=== PATIENT | male | born 1965 | race African-American/Black ===

== ENCOUNTER 2019-05-15 13:12 | Inpatient (IN) | payer OTHER ==
[~2019-05-15] VITALS: Ht 195.6 cm; Wt 125.2 kg
[2019-05-15 14:52] LABS: Basophils # (auto) 0 uL; Basophils % (auto) 0.9 % (0.0-2.0); Eosinophils # (auto) 0.1 uL; Eosinophils % (auto) 1.5 % (0.0-7.0); Hematocrit 41.9 % (41.0-53.0); Lymphocytes # (auto) 1.4 uL; Lymphocytes % (auto) 33.7 % (10.0-50.0); Mean Corpuscular Hemoglobin 29.3 pg (28.0-32.0); Mean Corpuscular Hgb Conc. 33.4 g/dL (32.0-36.0); Monocytes # (auto) 0.4 uL; Monocytes % (auto) 10.5 % (0.0-12.0); Neutrophils # (auto) 2.2 uL; Neutrophils % (auto) 53.4 % (37.0-80.0); Nucleated Red Blood Cells % 0.3 %; Platelet Count (auto) 204 10^3/uL (140-450); Red Blood Cells 4.77 10^6/uL (4.5-5.90); Red Cell Distribution Width 15.1 % (11.8-14.3); White Blood Cell 4.1 10^3/uL (4.4-10.8)
[2019-05-15 15:06] LABS: Alanine Aminotransferase 56 U/L (16-61); Albumin 3.6 g/dL (3.4-5.0); Anion Gap 5 (5-15); Aspartate Aminotransferase 20 U/L (15-37); BUN/Creatinine Ratio 9.9; Blood Urea Nitrogen 8 mg/dL (7-18); Calcium 8.4 mg/dL (8.5-10.1); Carbon Dioxide 26 mmol/L (21-32); Chloride 108 mmol/L (98-107); GFR African American 129 mL/min; GFR Non-African American 106 mL/min; Glucose 136 mg/dL (74-106); Potassium 4.1 mmol/L (3.5-5.1); Sodium 139 mmol/L (136-145)
[2019-05-15 15:11] LABS: Alkaline Phosphatase 116 U/L (45-117); Bilirubin, Total 0.4 mg/dL (0.2-1.0); Total Protein 7.4 g/dL (6.4-8.2)
[2019-05-15] MEDS ORDERED: MORPHINE SULF INJ 2 MG/ML SYRINGE 1ML IV PRN (17:15)
[2019-05-15] MEDS ORDERED: DEXTROSE (50%) 50ML SYRG IV PRN (17:15)
[2019-05-15] MEDS ORDERED: NITROGLYCERIN 0.4 MG SL TAB SL PRN (17:15)
[2019-05-15] MEDS: HYDROcodone-ACET 10/325MG TAB PO PRN (18:19)
[2019-05-15 20:42] VITALS: BP 158/100
[2019-05-15 21:05] VITALS: BP 158/100
--- NOTE | 2019-05-15 21:05 | NUR ---
Opening Shift Note Received report from ED nurse. Assumed care of patient. Patient is awake, alert, and orientated x 4. No S/S of distress/SOB, but head pain 8/10. no chest pain at this moment. Guards are at bedside. Patient is shackled by lower extremities bilaterally, and shackled by right wrist. Bed is in lowest position with side rails up x 2. Bed braked are locked and call light is with in reach. HOB is 30 degrees. Instructed on POC and to call for assist PRN, will continue to monitor for changes Q1hr and PRN.
[2019-05-15] MEDS: METOPROLOL TARTRATE 50 MG TAB PO SCH (21:41)
[2019-05-15] MEDS: ACCU-CHEK COMFORT CURVE STRIP VI SCH (21:41)
[2019-05-15] MEDS: InsuLIN REG 1unit/0.01ml Soln (100units/ml) SC SCH (21:46)
--- NOTE | 2019-05-16 00:02 | NUR ---
NPO PT IS NPO FOR CARDIOLITE STRESS TEST.
[2019-05-16] MEDS: HYDROmorphone HCL 2 MG/ML VL IV PRN ×3 (00:53→22:09)
[2019-05-16 04:30] VITALS: BP 145/82
[2019-05-16] MEDS: ACCU-CHEK COMFORT CURVE STRIP VI SCH ×4 (06:50→22:08)
[2019-05-16] MEDS: InsuLIN REG 1unit/0.01ml Soln (100units/ml) SC SCH ×4 (06:50→22:09)
--- NOTE | 2019-05-16 07:13 | NUR ---
CLOSING NOTES ENDORSED CARE TO DAY SHIFT NURSE
--- NOTE | 2019-05-16 07:33 | NUR ---
Opening Shift Note: Assumed care of patient, awake and alert. security guards dispatcher at bedside for safety. patient placed in handcuffs. No S/S of distress/SOB or pain. Bed in lowest locked position, side rails up x 2, call light within. Patient instructed on POC and to call for assist PRN, will continue to monitor for changes Q1hr and PRN.
[2019-05-16] MEDS ORDERED: ADENOSINE 105 MG in GIVE UN-DILUTED 0 ML IV STA (08:28)
--- NOTE | 2019-05-16 08:35 | NUR ---
Patient down to stress test.
[2019-05-16 08:53] VITALS: BP 140/84
--- NOTE | 2019-05-16 10:05 | NUR ---
Patient back to room from stress test.
[2019-05-16] MEDS: ASPirin-EC 81 mg tab PO SCH (10:11)
[2019-05-16] MEDS: METOPROLOL TARTRATE 50 MG TAB PO SCH ×2 (10:12→21:52)
[2019-05-16] MEDS: LISINOPRIL 20 MG TAB PO SCH (10:13)
[2019-05-16] MEDS: ENOXAPARIN SOD 40 MG/0.4 ML SYRINGE SC SCH (10:14)
--- NOTE | 2019-05-16 11:45 | NUR ---
at bedside. placed new orders. New orders were carried out.
--- NOTE | 2019-05-16 12:34 | NUR ---
semiconductor lab technician called to notify this nurse that patient is scheduled in the brine room laborer Sunday.
[2019-05-16 12:53] VITALS: BP 141/94
[2019-05-16] MEDS: AZITHROMYCIN 250 MG TAB PO SCH (13:00)
[2019-05-16] MEDS: cefTRIAXone 1GM/50ML D5W 50 ML IV SCH (13:00)
[2019-05-16] MEDS: FUROSEMIDE 20 MG/2 ML VIAL IV SCH (13:01)
[2019-05-16] MEDS: POTASSIUM CHL 10 Meq TABLET PO SCH (13:01)
--- NOTE | 2019-05-16 14:45 | NUR ---
Opening Shift Note: Assumed care of patient, awake and alert. laryngologist at bedside for safety. patient placed in handcuffs. No S/S of distress/SOB or pain. Bed in lowest locked position, side rails up x 2, call light within.Patient instructed on POC and to call for assist PRN, will continue to monitor for changes Q1hr and PRN.
[2019-05-16 17:01] VITALS: BP 138/94
[2019-05-16] MEDS: HYDROcodone-ACET 10/325MG TAB PO PRN (17:32)
--- NOTE | 2019-05-16 19:09 | NUR ---
Opening Shift Note Received report from day shirt nurseEddie. Assumed care of patient. Patient is awake, alert, and orientated x 4. No S/S of distress/SOB, but head pain 3/10. no chest pain at this moment. Guards are at bedside. Patient is shackled by lower extremities bilaterally, and shackled by right wrist. Bed is in lowest position with side rails up x 2. Bed braked are locked and call light is with in reach. HOB is 30 degrees. Instructed on POC and to call for assist PRN, will continue to monitor for changes Q1hr and PRN.
[2019-05-16 20:00] VITALS: BP 141/93
[2019-05-16 21:00] VITALS: BP 131/82
[2019-05-17 05:07] VITALS: BP 161/78
[2019-05-17] MEDS: HYDROcodone-ACET 10/325MG TAB PO PRN ×2 (06:08→21:01)
[2019-05-17] MEDS: ACCU-CHEK COMFORT CURVE STRIP VI SCH ×4 (06:10→22:20)
[2019-05-17] MEDS: InsuLIN REG 1unit/0.01ml Soln (100units/ml) SC SCH ×4 (06:25→22:20)
[2019-05-17 06:45] LABS: BUN/Creatinine Ratio 14.6; Calcium 8.8 mg/dL (8.5-10.1)
--- NOTE | 2019-05-17 07:24 | NUR ---
closing notes endorsed care to day shift nurse, Noa.
--- NOTE | 2019-05-17 07:44 | NUR ---
OPENING NOTE Assumed care of patient from NOC RNCarl. Patient awake and alert with no S/S of distress/SOB or pain. Left wrist and bilateral ankles cuffed to bed and guards at bedside. Instructed on POC and to call for assistance PRN, verbalized understanding. Bed in lowest, locked position with side rails up x2 and call light within reach. Will continue to monitor for changes Q1hr and PRN.
[2019-05-17 09:00] VITALS: BP 131/77
[2019-05-17] MEDS: cefTRIAXone 1GM/50ML D5W 50 ML IV SCH (09:38)
[2019-05-17] MEDS: ENOXAPARIN SOD 40 MG/0.4 ML SYRINGE SC SCH (09:41)
[2019-05-17] MEDS: FUROSEMIDE 20 MG/2 ML VIAL IV SCH (09:41)
[2019-05-17] MEDS: ASPirin-EC 81 mg tab PO SCH (09:42)
[2019-05-17] MEDS: LISINOPRIL 20 MG TAB PO SCH (09:42)
[2019-05-17] MEDS: POTASSIUM CHL 10 Meq TABLET PO SCH (09:42)
[2019-05-17] MEDS: METOPROLOL TARTRATE 50 MG TAB PO SCH ×2 (09:43→22:12)
[2019-05-17] MEDS: AZITHROMYCIN 250 MG TAB PO SCH (09:43)
--- NOTE | 2019-05-17 11:30 | NUR ---
HEADACHE Patient c/o headache 8/[address] Paramjit Sy aware, new order for Acetaminophen 650mg Q4hr received.
[2019-05-17] MEDS: ACETAMINOPHEN 325 MG TAB PO PRN ×3 (12:13→22:27)
[2019-05-17 13:00] VITALS: BP 130/71
[2019-05-17 17:00] VITALS: BP 147/96
--- NOTE | 2019-05-17 19:26 | NUR ---
CLOSING NOTE Endorsed care of patient to NOC RNCliff.
--- NOTE | 2019-05-17 19:30 | NUR ---
Opening Shift Note Assumed care of patient, awake and alert. Guards on bedside. Patient still having Headache. Will give GOFF medication as ordered Instructed on POC and to call for assist PRN, will continue to monitor for changes Q1hr and PRN.
[2019-05-17 22:00] VITALS: BP 151/98
[2019-05-18] MEDS: HYDROcodone-ACET 10/325MG TAB PO PRN ×5 (03:50→22:35)
[2019-05-18 05:00] VITALS: BP 115/72
[2019-05-18] MEDS: InsuLIN REG 1unit/0.01ml Soln (100units/ml) SC SCH ×4 (07:08→22:00)
[2019-05-18] MEDS: ACCU-CHEK COMFORT CURVE STRIP VI SCH ×4 (07:08→22:00)
--- NOTE | 2019-05-18 07:45 | NUR ---
Opening Shift Note Assumed care of patient from NOC RNCliff. Patient awake and alert with no S/S of distress/SOB or pain. Left wrist and bilateral lower extremities cuffed to bed, guards at bedside. Instructed on POC and to call for assist PRN, verbalized understanding. Bed in lowest, locked position with side rails up x2 and call light within reach. Will continue to monitor for changes Q1hr and PRN.
[2019-05-18 08:34] VITALS: BP 143/75
[2019-05-18] MEDS: cefTRIAXone 1GM/50ML D5W 50 ML IV SCH (09:35)
[2019-05-18] MEDS: FUROSEMIDE 20 MG/2 ML VIAL IV SCH (09:36)
[2019-05-18] MEDS: ASPirin-EC 81 mg tab PO SCH (09:36)
[2019-05-18] MEDS: POTASSIUM CHL 10 Meq TABLET PO SCH (09:36)
[2019-05-18] MEDS: METOPROLOL TARTRATE 50 MG TAB PO SCH ×2 (09:37→22:34)
[2019-05-18] MEDS: LISINOPRIL 20 MG TAB PO SCH (09:37)
[2019-05-18] MEDS: AZITHROMYCIN 250 MG TAB PO SCH (09:37)
[2019-05-18] MEDS: ENOXAPARIN SOD 40 MG/0.4 ML SYRINGE SC SCH (09:38)
[2019-05-18 13:00] VITALS: BP 146/84
[2019-05-18 17:00] VITALS: BP 134/86
[2019-05-18 17:49] LABS: Basophils # (auto) 0.1 uL; Basophils % (auto) 1.4 % (0.0-2.0); Eosinophils # (auto) 0.1 uL; Eosinophils % (auto) 1.6 % (0.0-7.0); Hematocrit 46.1 % (41.0-53.0); Hemoglobin 15.2 g/dL (13.5-17.5); Lymphocytes # (auto) 1.7 uL; Lymphocytes % (auto) 35.2 % (10.0-50.0); Mean Corpuscular Hemoglobin 28.9 pg (28.0-32.0); Mean Corpuscular Volume 87.8 fL (80.0-100.0); Monocytes # (auto) 0.4 uL; Monocytes % (auto) 8.1 % (0.0-12.0); Neutrophils # (auto) 2.7 uL; Neutrophils % (auto) 53.7 % (37.0-80.0); Nucleated Red Blood Cells % 0.1 %; Platelet Count (auto) 208 10^3/uL (140-450); Red Blood Cells 5.25 10^6/uL (4.5-5.90); Red Cell Distribution Width 15.3 % (11.8-14.3); White Blood Cell 4.9 10^3/uL (4.4-10.8)
[2019-05-18 18:07] LABS: INR 1.02 (0.9-1.15)
[2019-05-18 18:19] LABS: Albumin 3.5 g/dL (3.4-5.0); BUN/Creatinine Ratio 15.7; Bilirubin, Total 0.3 mg/dL (0.2-1.0); Calcium 8.9 mg/dL (8.5-10.1); Total Protein 7.9 g/dL (6.4-8.2)
--- NOTE | 2019-05-18 18:51 | NUR ---
URINE Urine specimen collected and sent to lab via bullet.
--- NOTE | 2019-05-18 19:00 | NUR ---
Opening Shift Note Assumed care of patient, awake and alert. Guards on beside. No S/S of distress/SOB or pain. Instructed on POC and to call for assist PRN, will continue to monitor for changes Q1hr and PRN.
[2019-05-18 19:16] LABS: Urine Bacteria NONE SEEN /hpf (None Seen); Urine Blood Negative /uL (Negative); Urine Hyaline Cast FEW /lpf (0 - 2); Urine Specific Gravity 1.019 (1.001-1.035); Urine WBC 1 /hpf (0 - 3)
[2019-05-18 22:00] VITALS: BP 134/85
[2019-05-19] MEDS: HYDROcodone-ACET 10/325MG TAB PO PRN ×2 (04:50→11:54)
[2019-05-19 05:00] VITALS: BP 124/81
[2019-05-19] MEDS: ACCU-CHEK COMFORT CURVE STRIP VI SCH ×2 (06:40→11:53)
[2019-05-19] MEDS: InsuLIN REG 1unit/0.01ml Soln (100units/ml) SC SCH ×2 (06:41→11:53)
--- NOTE | 2019-05-19 07:20 | NUR ---
Opening Shift Note: Received report from [facility] nurse [place]. Assumed care of patient, awake and alert. No S/S of distress/SOB or pain. Guards at bedside for patient safety. Bed in lowest locked position, side rails up x 2, call light within reach. Patient instructed on POC and to call for assist PRN, will continue to monitor for changes Q1hr and PRN.
[2019-05-19] MEDS ORDERED: IOHEXOL 350 MG/ML 100ML IJ ONE (07:32)
[2019-05-19] MEDS ORDERED: LIDOCAINE 2%HCL (LOCAL ANESTH.) INJ 20ML MDV ONE (07:32)
--- NOTE | 2019-05-19 07:35 | NUR ---
Patient taken down to laborer salvage.
[2019-05-19] MEDS ORDERED: ANGIOMAX 250 MG VIAL IV ONE (08:23)
[2019-05-19] MEDS ORDERED: fentaNYL CITRATE 100 MCG/2 ML VL ONE (08:23)
[2019-05-19] MEDS ORDERED: MIDAZOLAM HCL 1MG/1ML-2 ML VIAL ONE (08:23)
[2019-05-19] MEDS ORDERED: SODIUM CHL 0.9% 0 ML ONE (08:24)
[2019-05-19 08:44] VITALS: BP 138/70
[2019-05-19] MEDS ORDERED: SODIUM CHLORIDE 0.9% 1,000 ML IV SCH (09:49)
[2019-05-19] MEDS: ENOXAPARIN SOD 40 MG/0.4 ML SYRINGE SC SCH (09:56)
--- NOTE | 2019-05-19 10:15 | NUR ---
Patient back to room from quality assurance lab technician. No S/S of distress or pain noted at this time. Site is assessed, no hematomas or bleeding noted at this time. Will continue to monitor patient.
[2019-05-19] MEDS: FUROSEMIDE 20 MG/2 ML VIAL IV SCH (10:27)
[2019-05-19] MEDS: ASPirin-EC 81 mg tab PO SCH (10:27)
[2019-05-19] MEDS: AZITHROMYCIN 250 MG TAB PO SCH (10:27)
[2019-05-19] MEDS: METOPROLOL TARTRATE 50 MG TAB PO SCH (10:28)
[2019-05-19] MEDS: cefTRIAXone 1GM/50ML D5W 50 ML IV SCH (10:28)
[2019-05-19] MEDS: LISINOPRIL 20 MG TAB PO SCH (10:28)
[2019-05-19] MEDS: POTASSIUM CHL 10 Meq TABLET PO SCH (10:28)
--- NOTE | 2019-05-19 10:30 | NUR ---
Site assessed. No bleeding or hematoma noted at this time. Dr. Bernstein at bedside. Discussed POC at this time. Patient verbally agree. Will continue to monitor.
--- NOTE | 2019-05-19 10:47 | NUR ---
Assessed site at this time. No bleeding or hematoma noted. Will continue to monitor.
--- NOTE | 2019-05-19 11:17 | NUR ---
Site assessed at this time. No bleeding or hematomas noted at this time.
[2019-05-19 13:21] VITALS: BP 130/69
--- NOTE | 2019-05-19 14:45 | NUR ---
IV removal: IV DC'd with clean sterile technique, catheter fully intact. Pressure dressing applied to site. Patient tolerated well. Tele box removed. and sent to [facility] center. Discharged papers given to guards. No distress noted at this time.
== END 2019-05-19 18:05 | DRG 286 ==
LOC: EEVIPCON 13:12 → EDBD 13:12 → ER 13:12 → TELE 13:13 → TELE-E-ADS 20:47
PROVIDERS: ADMIT Internal Medicine; ATTEND Internal Medicine
PROC: 4A023N7 Measurement of Cardiac Sampling and Pressure, Left Heart, Percutaneous Approach (ICD-10-PCS; principal; 2019-05-19)
PROC: B2111ZZ Fluoroscopy of Multiple Coronary Arteries using Low Osmolar Contrast (ICD-10-PCS; 2019-05-19)
PROC: B2151ZZ Fluoroscopy of Left Heart using Low Osmolar Contrast (ICD-10-PCS; 2019-05-19)
PROC: B41F1ZZ Fluoroscopy of Right Lower Extremity Arteries using Low Osmolar Contrast (ICD-10-PCS; 2019-05-19)
PROC: 03HY32Z Insertion of Monitoring Device into Upper Artery, Percutaneous Approach (ICD-10-PCS; 2019-05-19)
DX: I11.0 Hypertensive heart disease with heart failure (principal); J18.9 Pneumonia, unspecified organism; I24.9 Acute ischemic heart disease, unspecified; I50.33 Acute on chronic diastolic (congestive) heart failure; E11.9 Type 2 diabetes mellitus without complications; E78.00 Pure hypercholesterolemia, unspecified; E66.9 Obesity, unspecified; Z83.3 Family history of diabetes mellitus; Z87.891 Personal history of nicotine dependence; Z68.32 Body mass index [BMI] 32.0-32.9, adult; Z79.84 Long term (current) use of oral hypoglycemic drugs
CPT/HCPCS: 36415; 71045; 75710; 78452; 80048; 80053; 81001; 82962; 83880; 84484; 85025; 85610; 86850; 86900; 86901; 87081; 93005; 93017; 93458; 94761; 96372; 99291; G0378; J0153; J0696; J1815; J2250